=== PATIENT | male | born 1995 | race Caucasian/White ===

== ENCOUNTER 2016-06-05 22:51 | Emergency (ER) | payer SELFPAY ==
[2016-06-05 23:07] VITALS: RESP 20
--- NOTE | 2016-06-06 01:06 | C.PDOC ---
History Of Present Illness 20 year old male presents to the ED with complaints of fever associated with body aches and coughs for the past 3-4 days and 2 episodes of vomiting prompting visit. Patient notes taking over the counter ibuprofen with minimal relief. Patient denies diarrhea, dysuria, GI bleed, and any recent travel. Time Seen by Provider: 06/05/16 23:26 Chief Complaint (Nursing): Flu-like Symptoms History Per: Patient History/Exam Limitations: no limitations Onset/Duration Of Symptoms: Days Current Symptoms Are (Timing): Still Present Associated Symptoms: Fever, Cough, Vomiting (2 episodes ). denies: Chills, Sore Throat, Diarrhea Past Medical History Reviewed: Historical Data, Nursing Documentation, Vital Signs Vital Signs: Last Vital Signs Temp 98.3 F 06/06/16 01:14 Pulse 82 06/06/16 01:14 Resp 20 06/06/16 01:14 BP 144/70 06/06/16 01:14 Pulse Ox 100 06/06/16 01:14 - Medical History PMH: Gastritis Family History: States: Unknown Family Hx - Social History Hx Alcohol Use: Yes Hx Substance Use: No - Immunization History Hx Tetanus Toxoid Vaccination: No Hx Influenza Vaccination: No Hx Pneumococcal Vaccination: No Review Of Systems Constitutional: Positive for: Fever. Negative for: Chills, Sweats Cardiovascular: Negative for: Chest Pain Respiratory: Negative for: Shortness of Breath Gastrointestinal: Positive for: Vomiting (2 epidsodes of vomiting ). Negative for: Nausea, Abdominal Pain, Diarrhea Genitourinary: Negative for: Dysuria, Hematuria Physical Exam - Physical Exam Appears: Non-toxic, No Acute Distress Skin: Warm, Dry Head: Normacephalic Eye(s): bilateral: PERRL, EOMI Ear(s): Bilateral: Normal Nose: Normal Oral Mucosa: Moist Tongue: Normal Appearing Lips: Normal Appearing Throat: Erythema (mild ), No Exudate Neck: Normal ROM, Supple Chest: Symmetrical, No Deformity Cardiovascular: Rhythm Regular Respiratory: No Accessory Muscle Use, No Rales, No Rhonchi, No Stridor, No Wheezing Gastrointestinal/Abdominal: Soft, No Tenderness, No Distention, No Guarding, No Rebound Extremity: Normal ROM, No Tenderness Neurological/Psych: Oriented x3 ED Course And Treatment O2 Sat by Pulse Oximetry: 95 Medical Decision Making Medical Decision Making: Chest X-Ray was negative Disposition - Disposition Referrals: [facility] [Outside] Disposition: HOME/ ROUTINE Disposition Time: 01:06 Condition: GOOD Additional Instructions: Follow up with the medical doctor within 1-2 days without fail. return if worsened. Prescriptions: Ibuprofen [Motrin] 600 mg PO TID #21 tab Benzonatate [Tessalon Perles] 200 mg PO TID PRN #21 sgl PRN Reason: Cough Ondansetron ODT [Zofran ODT] 1 odt PO BID PRN #6 odt PRN Reason: Nausea/Vomiting predniSONE [Prednisone] 20 mg PO BID #10 tab Instructions: Viral Syndrome (ED) - Clinical Impression Clinical Impression: Influenza-like illness - Scribe Statement The provider has reviewed the documentation as recorded by the Scribe Ria Hearn All medical record entries made by the Scribe were at my direction and personally dictated by me. I have reviewed the chart and agree that the record accurately reflects my personal performance of the history, physical exam, medical decision making, and the department course for this patient. I have also personally directed, reviewed, and agree with the discharge instructions and disposition.
[2016-06-06 01:15] VITALS: BP 144/70; PULSE 82; TEMP 98.3
[2016-06-06 06:56] VITALS: O2SAT 95
--- NOTE | 2016-06-06 08:07 | RAD ---
HISTORY: cough fever COMPARISON: No prior. TECHNIQUE: Chest PA and lateral FINDINGS: LUNGS: Mild venous congestion with patchy increased markings at the bases. PLEURA: No significant pleural effusion identified. No pneumothorax apparent. CARDIOVASCULAR: Normal. OSSEOUS STRUCTURES: No significant abnormalities. VISUALIZED UPPER ABDOMEN: Normal. OTHER FINDINGS: None. IMPRESSION: Mild venous congestion with patchy increased markings at the bases.
== END 2016-06-06 01:15 | disposition home or self-care (01) ==
LOC: C.ER 22:51
DX: J11.1 Influenza due to unidentified influenza virus with other respiratory manifestations (principal)